=== PATIENT | male | born 1945 | race Caucasian/White ===

== ENCOUNTER → 2018-07-07 | Outpatient (CLI) | payer MEDICARE, OTHER | END | disposition home or self-care (01) | LOC: LAB 09:20 | PROVIDERS: ATTEND Internal Medicine | DX: R91.1 Solitary pulmonary nodule (principal); R07.89 Other chest pain | CPT/HCPCS: 36415; 82565; 84520 ==

== ENCOUNTER → 2019-02-28 | Outpatient (CLI) | payer MEDICARE, OTHER ==
[2019-02-28 09:17] LABS: Albumin 3.8 g/dL (3.4-5.0); Calcium 8.8 mg/dL (8.5-10.1); Potassium 4.7 mmol/L (3.5-5.1)
[2019-02-28 09:20] LABS: Bilirubin, Total 0.4 mg/dL (0.2-1.0); Total Protein 7.1 g/dL (6.4-8.2)
== END | disposition home or self-care (01) ==
LOC: LAB 08:15
PROVIDERS: ATTEND Internal Medicine
DX: E11.9 Type 2 diabetes mellitus without complications (principal); I10 Essential (primary) hypertension
CPT/HCPCS: 36415; 80053; 83036

== ENCOUNTER → 2019-08-16 | Outpatient (CLI) | payer MEDICARE, OTHER | END | disposition home or self-care (01) | LOC: LAB 10:26 | PROVIDERS: ATTEND Internal Medicine | DX: R07.81 Pleurodynia (principal) | CPT/HCPCS: 36415; 82565; 84520 ==

== ENCOUNTER → 2020-03-22 | Outpatient (CLI) | payer MEDICARE, OTHER | END | disposition home or self-care (01) | LOC: XYW 09:33 | PROVIDERS: ATTEND Internal Medicine | DX: I11.9 Hypertensive heart disease without heart failure (principal) | CPT/HCPCS: 93306 ==

== ENCOUNTER → 2020-06-13 | Outpatient (CLI) | payer MEDICARE, OTHER ==
[~2020-06-13] VITALS: Ht 182.9 cm; Wt 93.0 kg
[~2020-06-13] MED LIST: ADENOSINE 78 MG in GIVE UN-DILUTED 0 ML IV STA
== END | disposition home or self-care (01) ==
LOC: XY 08:25
PROVIDERS: ATTEND Internal Medicine
DX: R07.89 Other chest pain (principal)
CPT/HCPCS: 78452; 93017; A9500; J0153

== ENCOUNTER → 2022-06-03 | Outpatient (CLI) | payer MEDICARE, OTHER ==
[2022-06-03 17:05] LABS: Prostate Specific Antigen 2.75 ng/mL (0.0-4.0)
== END | disposition home or self-care (01) ==
LOC: LAB 15:21
PROVIDERS: ATTEND Internal Medicine
DX: E11.40 Type 2 diabetes mellitus with diabetic neuropathy, unspecified (principal); N40.0 Benign prostatic hyperplasia without lower urinary tract symptoms
CPT/HCPCS: 82607; 84153

== ENCOUNTER → 2023-02-16 | Outpatient (CLI) | payer MEDICARE, OTHER ==
[~2023-02-16] MED LIST changes: +ACE3T PO; -ADENOSINE 78 MG in GIVE UN-DILUTED 0 ML IV STA; +APIX5TAB PO; +CEPH250C PO; +GABA-1250 PO; +HYDR25TA5 PO; +LOSA50TA46 PO; +MECL1TAB42 PO; +MET50T PO; +METF-371 PO; +SIMV20TA20 PO
[2023-02-16 12:24] LABS: Basophils # (auto) 0 10 ^3/uL (0-0.2); Basophils % (auto) 0.3 % (0.0-2.0); Eosinophils # (auto) 0 10 ^3/uL (0-0.8); Eosinophils % (auto) 0.4 % (0.0-7.0); Hematocrit 42.7 % (41.0-53.0); Hemoglobin 14.7 g/dL (13.5-17.5); Lymphocytes # (auto) 2.9 10 ^3/uL (0.4-5.4); Lymphocytes % (auto) 39.4 % (10.0-50.0); Mean Corpuscular Hemoglobin 29.6 pg (28.0-32.0); Mean Corpuscular Hgb Conc. 34.5 g/dL (32.0-36.0); Mean Corpuscular Volume 85.7 fL (80.0-100.0); Monocytes # (auto) 0.5 10 ^3/uL (0-1.3); Monocytes % (auto) 6.8 % (0.0-12.0); Neutrophils # (auto) 3.9 10 ^3/uL (1.6-8.6); Neutrophils % (auto) 53.1 % (37.0-80.0); Nucleated Red Blood Cells % 0.1 %; Red Blood Cells 4.98 10^6/uL (4.5-5.90); Red Cell Distribution Width 13.6 % (11.8-14.3); White Blood Cell 7.4 10^3/uL (4.4-10.8)
[2023-02-16 12:42] LABS: INR 1.02 (0.9-1.15); Prothrombin Time 10.7 sec (9.3-11.8)
[2023-02-16 12:51] LABS: Alanine Aminotransferase 24 U/L (7-40); Albumin 4.9 g/dL (3.2-4.8); Alkaline Phosphatase 59 U/L (46-116); Anion Gap 6 (5-15); Aspartate Aminotransferase 23 U/L (13-40); BUN/Creatinine Ratio 12.6 (10.0-20.0); Bilirubin, Total 0.9 mg/dL (0.2-1.0); Blood Urea Nitrogen 14 mg/dL (9-23); Calcium 9.7 mg/dL (8.5-10.1); Carbon Dioxide 28 mmol/L (20-30); Chloride 102 mmol/L (98-107); Glucose 269 mg/dL (74-106); Potassium 4.2 mmol/L (3.5-5.1); Sodium 136 mmol/L (136-145); Total Protein 7.6 g/dL (5.7-8.2)
== END | disposition home or self-care (01) ==
LOC: LAB 11:42
PROVIDERS: ATTEND Internal Medicine
DX: E13.9 Other specified diabetes mellitus without complications (principal); R22.1 Localized swelling, mass and lump, neck
CPT/HCPCS: 36415; 80053; 83036; 83615; 85025; 85610

== ENCOUNTER 2023-03-13 06:02 | Day surgery (SDC) | payer MEDICARE, OTHER ==
[2023-03-12 11:55] LABS: Hemoglobin 15.2 g/dL (13.5-17.5); Mean Corpuscular Hemoglobin 29.4 pg (28.0-32.0); Mean Corpuscular Hgb Conc. 34.6 g/dL (32.0-36.0); Mean Corpuscular Volume 84.7 fL (80.0-100.0); Red Blood Cells 5.19 10^6/uL (4.5-5.90); Red Cell Distribution Width 13.1 % (11.8-14.3); White Blood Cell 12.9 10^3/uL (4.4-10.8)
[2023-03-12 11:59] LABS: Basophils % (manual) 0 (0.0-2.0); Blast Cells 0; Eosinophils % (manual) 0 (0-7); Promyelocytes % 0; Reactive Lymphocytes 0
[2023-03-12 12:02] LABS: INR 1.07 (0.9-1.15); Partial Thromboplastin Time 25.9 SEC (24.5-34.5); Prothrombin Time 11.2 sec (9.3-11.8)
[2023-03-12 12:10] LABS: Urine Bacteria NONE SEEN /hpf (None Seen); Urine Blood Negative /uL (Negative); Urine Clarity Clear (Clear); Urine Color Yellow (Yellow); Urine Hyaline Cast FEW /lpf (0 - 2); Urine Mucus FEW (None Seen); Urine Protein, UAD 1+ (Negative); Urine Specific Gravity 1.029 (1.001-1.035); Urine Urobilinogen Normal (Negative); Urine WBC <1 /hpf (0 - 3); Urine pH 5.5 (5.0-8.0)
[2023-03-12 13:01] LABS: Alanine Aminotransferase 19 U/L (7-40); Albumin 5.1 g/dL (3.2-4.8); Alkaline Phosphatase 135 U/L (46-116); Anion Gap 8 (5-15); Aspartate Aminotransferase 49 U/L (13-40); BUN/Creatinine Ratio 16.5 (10.0-20.0); Bilirubin, Total 0.7 mg/dL (0.2-1.0); Blood Urea Nitrogen 18 mg/dL (9-23); Calcium 10.2 mg/dL (8.7-10.4); Carbon Dioxide 28 mmol/L (20-30); Chloride 100 mmol/L (98-107); Glucose 241 mg/dL (74-106); Potassium 5.1 mmol/L (3.5-5.1); Sodium 136 mmol/L (136-145); Total Protein 8.1 g/dL (5.7-8.2)
[2023-03-12 13:19] LABS: Band Neutrophils % (manual) 1; Lymphocytes % (manual) 29 (10.0-50.0); Metamyelocytes % 1; Monocytes % (manual) 14 (0-12); Myelocytes % 3; Platelet Estimate Adequate
[~2023-03-13] VITALS: Ht 182.9 cm; Wt 88.9 kg
[~2023-03-13 06:02] MED LIST changes: -ACE3T PO; -CEPH250C PO; -MECL1TAB42 PO
[2023-03-13] MEDS ORDERED: SUCCINYLCHOLINE CHLORIDE 20 MG/ML 10ML VIAL IV ONE (06:59)
[2023-03-13] MEDS ORDERED: fentaNYL CITRATE 100 MCG/2 ML VL ONE (07:01)
[2023-03-13] MEDS ORDERED: ceFAZolin 2 GM/D5W100ml 100 ML IV ONE (07:01)
[2023-03-13] MEDS ORDERED: PROPOFOL 10 MG/ML 20 ML IV ONE (07:06)
[2023-03-13] MEDS ORDERED: LIDOCAINE W/ EPINEPHRINE 1% 20ML VIAL ONE (07:08)
[2023-03-13] MEDS ORDERED: BUPIVACAINE HCL 0.25% P/F 10 ML VIAL ONE (07:08)
[2023-03-13] MEDS ORDERED: MEPERIDINE HCL (50 MG/ML) 1 ML VIAL ONE (07:34)
[2023-03-13] MEDS ORDERED: ePHEDrine SULFATE 50 MG/ML AMP ONE (07:43)
[2023-03-13] MEDS ORDERED: DexAMETHasone SOD PHOS 10MG/1ML VIAL INJ ONE (07:52)
[2023-03-13] MEDS ORDERED: ONDANSETRON HCL 4 MG/2 ML VIAL ONE (07:52)
[2023-03-13] MEDS ORDERED: MEPERIDINE HCL (25 MG/ML) 1ML VIAL ONE (08:11)
[2023-03-13] MEDS ORDERED: ACE3T PO ×2 (08:34→08:39)
[2023-03-13 08:35] VITALS: PULSE 86; RESP 10; TEMP 97.6; O2SAT 96
[2023-03-13] MEDS ORDERED: CEPH250C PO (08:39)
[2023-03-13] MEDS ORDERED: HYDROmorphone HCL 2 MG/ML VL/or syr IV PRN (08:45)
[2023-03-13] MEDS ORDERED: MEPERIDINE HCL (25 MG/ML) 1ML VIAL IV PRN (08:45)
[2023-03-13] MEDS ORDERED: ONDANSETRON HCL 4 MG/2 ML VIAL IV PRN (08:45)
[2023-03-13] MEDS ORDERED: InsuLIN REG 1unit/0.01ml Soln (100units/ml) SC ONE (09:00)
[2023-03-13 10:00] VITALS: BP 120/57; PULSE 82; RESP 17; O2SAT 91
== END 2023-03-13 10:07 | disposition home or self-care (01) ==
LOC: SUR 06:02 → MERGE 07:00 → SUR 10:07
PROVIDERS: ATTEND Surgery
DX: C85.81 Other specified types of non-Hodgkin lymphoma, lymph nodes of head, face, and neck (principal); R22.1 Localized swelling, mass and lump, neck; I10 Essential (primary) hypertension; E11.9 Type 2 diabetes mellitus without complications; Z79.899 Other long term (current) drug therapy; Z79.4 Long term (current) use of insulin; Z98.890 Other specified postprocedural states
CPT/HCPCS: 36415; 42440; 80053; 81001; 82962; 85007; 85027; 85610; 85730; 86850; 86900; 86901; J0330; J1100; J1815; J2175; J2405; J2704; J3010; J3490

== ENCOUNTER 2023-03-24 13:01 | Inpatient (IN) | payer MEDICARE, OTHER ==
[~2023-03-24] VITALS: Ht 182.9 cm; Wt 83.5 kg
[~2023-03-24 13:01] MED LIST changes: +ACE3T PO; +CEPH250C PO
[2023-03-24] MEDS ORDERED: ACETAMINOPHEN 325 MG TAB PO PRN (16:15)
[2023-03-24] MEDS ORDERED: ALBUTEROL MEDNEB 2.5 mg/3ml NEB NEB PRN (16:30)
[2023-03-24] MEDS ORDERED: DEXTROSE (50%) 50ML SYRG IV PRN (16:30)
[2023-03-24] MEDS ORDERED: D5W/SOD CHL 0.45%/KCL 20MEQ 1,000 ML IV SCH (17:00)
[2023-03-24] MEDS ORDERED: HYDROmorphone HCL 2 MG/ML VL/or syr IV PRN (17:00)
[2023-03-24] MEDS: ACCU-CHEK COMFORT CURVE STRIP VI SCH ×2 (17:00→22:00)
[2023-03-24] MEDS: SODIUM CHLORIDE 0.9% 1,000 ML IV SCH (18:53)
[2023-03-24 18:58] LABS: Hematocrit 43.2 % (41.0-53.0); Hemoglobin 14.9 g/dL (13.5-17.5); Mean Corpuscular Hemoglobin 29.6 pg (28.0-32.0); Mean Corpuscular Hgb Conc. 34.4 g/dL (32.0-36.0); Red Blood Cells 5.02 10^6/uL (4.5-5.90); White Blood Cell 10.6 10^3/uL (4.4-10.8)
[2023-03-24 19:07] LABS: Basophils % (manual) 0 (0.0-2.0); Blast Cells 0; Eosinophils % (manual) 0 (0-7); Metamyelocytes % 0; Myelocytes % 0; Promyelocytes % 0; Reactive Lymphocytes 0
[2023-03-24] MEDS: InsuLIN REG 1unit/0.01ml Soln (100units/ml) SC SCH ×2 (19:09→23:37)
[2023-03-24 19:17] LABS: Urine Bacteria NONE SEEN /hpf (None Seen); Urine Blood Negative /uL (Negative); Urine Clarity Clear (Clear); Urine Color Colorless (Yellow); Urine Hyaline Cast FEW /lpf (0 - 2); Urine Mucus FEW (None Seen); Urine Protein, UAD Negative (Negative); Urine Specific Gravity 1.022 (1.001-1.035); Urine Urobilinogen Normal (Negative); Urine WBC <1 /hpf (0 - 3); Urine pH 5.5 (5.0-8.0)
[2023-03-24] MEDS ORDERED: TEMAZEPAM 15 MG CAP PO ONE (19:45)
[2023-03-24 20:00] VITALS: PULSE 86; RESP 18; O2SAT 96
[2023-03-24] MEDS ORDERED: INSU100I70 SC (20:06)
[2023-03-24 20:28] LABS: Band Neutrophils % (manual) 5; Lymphocytes % (manual) 39 (10.0-50.0); Monocytes % (manual) 11 (0-12); Platelet Estimate Adequate; RBC Morphology Normal
[2023-03-24 20:34] LABS: Alanine Aminotransferase 17 U/L (7-40); Albumin 4.2 g/dL (3.2-4.8); Alkaline Phosphatase 142 U/L (46-116); Anion Gap 13 (5-15); Aspartate Aminotransferase 64 U/L (13-40); BUN/Creatinine Ratio 24.5 (10.0-20.0); Blood Urea Nitrogen 27 mg/dL (9-23); Calcium 9.9 mg/dL (8.5-10.1); Carbon Dioxide 25 mmol/L (20-30); Chloride 96 mmol/L (98-107); Glucose 262 mg/dL (74-106); Sodium 134 mmol/L (136-145)
[2023-03-24 20:35] LABS: Bilirubin, Total 0.6 mg/dL (0.2-1.0); Total Protein 6.6 g/dL (5.7-8.2)
[2023-03-24 22:00] VITALS: BP 120/75; PULSE 86; RESP 18; TEMP 98.2; O2SAT 96
[2023-03-24] MEDS: GABAPENTIN 300 MG CAP PO SCH (23:34)
[2023-03-24] MEDS: ATORVASTATIN 20 MG TAB PO SCH (23:34)
[2023-03-24] MEDS: METOPROLOL TARTRATE 50 MG TAB PO SCH (23:36)
[2023-03-24] MEDS: ceFAZolin 2 GM/D5W100ml 100 ML IV SCH (23:55)
[2023-03-25] VITALS (7 sets, daily range): BP systolic 118–156; BP diastolic 50–70; PULSE 58–85; RESP 17–20; TEMP 97.6–98.5; O2SAT 95–98
[2023-03-25] MEDS: ceFAZolin 2 GM/D5W100ml 100 ML IV SCH ×3 (06:00→22:23)
[2023-03-25] MEDS: ACCU-CHEK COMFORT CURVE STRIP VI SCH ×4 (07:00→22:33)
[2023-03-25] MEDS: InsuLIN REG 1unit/0.01ml Soln (100units/ml) SC SCH ×4 (07:00→22:00)
[2023-03-25] MEDS: GABAPENTIN 300 MG CAP PO SCH ×3 (08:06→22:23)
[2023-03-25] MEDS ORDERED: OMNIPAQUE 12mg/ml 500ml ORAL SOLUTION PO ONE (08:28)
[2023-03-25] MEDS: SODIUM CHLORIDE 0.9% 1,000 ML IV SCH (08:55)
[2023-03-25] MEDS: METOPROLOL TARTRATE 50 MG TAB PO SCH ×2 (09:57→22:23)
[2023-03-25] MEDS: LOSARTAN POTASSIUM 50 MG TAB PO SCH (09:57)
[2023-03-25] MEDS ORDERED: hydroCHLOROthiazide 25 MG TAB PO SCH (10:00)
[2023-03-25] MEDS ORDERED: IOHEXOL 300 MG/ML 100ML BOTTLE IJ ONE (11:50)
[2023-03-25] MEDS: ATORVASTATIN 20 MG TAB PO SCH (22:24)
[2023-03-26] VITALS (9 sets, daily range): BP systolic 126–148; BP diastolic 68–91; PULSE 61–73; RESP 16–18; TEMP 97.4–98.5; O2SAT 93–98
[2023-03-26] MEDS: SODIUM CHLORIDE 0.9% 1,000 ML IV SCH (01:41)
[2023-03-26] MEDS: ceFAZolin 2 GM/D5W100ml 100 ML IV SCH ×3 (06:44→21:56)
[2023-03-26] MEDS: GABAPENTIN 300 MG CAP PO SCH ×3 (06:44→21:57)
[2023-03-26] MEDS: ACCU-CHEK COMFORT CURVE STRIP VI SCH ×4 (06:51→22:13)
[2023-03-26] MEDS: InsuLIN REG 1unit/0.01ml Soln (100units/ml) SC SCH ×4 (06:51→22:13)
[2023-03-26 06:52] LABS: INR 1.09 (0.9-1.15); Partial Thromboplastin Time 25.1 SEC (24.5-34.5); Prothrombin Time 11.4 sec (9.3-11.8)
[2023-03-26] MEDS ORDERED: LIDOCAINE 2%HCL (LOCAL ANESTH.) INJ 10ml MDV ONE (07:42)
[2023-03-26] MEDS ORDERED: NALOXONE HCL 1MG/ML 2ML SYRINGE ONE (07:49)
[2023-03-26] MEDS ORDERED: FLUMAZENIL 0.1 MG/ML INJ 10ML MDV IV ONE (07:49)
[2023-03-26] MEDS ORDERED: fentaNYL CITRATE 100 MCG/2 ML VL ONE (07:50)
[2023-03-26] MEDS ORDERED: MIDAZOLAM HCL 2MG/2ML 2ml VIAL (1mg/ml) ONE (07:50)
[2023-03-26] MEDS: LOSARTAN POTASSIUM 50 MG TAB PO SCH (10:29)
[2023-03-26] MEDS: METOPROLOL TARTRATE 50 MG TAB PO SCH ×2 (10:29→21:59)
[2023-03-26] MEDS ORDERED: GADOTERATE MEG 10 MMOL/20ml INJ (0.5MMOL/ml) IV ONE (10:53)
[2023-03-26] MEDS: TAMSULOSIN HYDROCHLORIDE 0.4 MG CAP PO SCH (18:40)
[2023-03-26] MEDS: ATORVASTATIN 20 MG TAB PO SCH (21:57)
[2023-03-27] VITALS (8 sets, daily range): BP systolic 109–138; BP diastolic 51–83; PULSE 54–78; RESP 16–18; TEMP 97.7–98.2; O2SAT 93–100
[2023-03-27] MEDS: GABAPENTIN 300 MG CAP PO SCH ×3 (05:37→21:12)
[2023-03-27] MEDS: ceFAZolin 2 GM/D5W100ml 100 ML IV SCH ×3 (05:37→21:22)
[2023-03-27] MEDS: ACCU-CHEK COMFORT CURVE STRIP VI SCH ×4 (06:45→21:22)
[2023-03-27] MEDS: InsuLIN REG 1unit/0.01ml Soln (100units/ml) SC SCH ×4 (06:45→21:39)
[2023-03-27] MEDS: METOPROLOL TARTRATE 50 MG TAB PO SCH ×2 (10:00→21:13)
[2023-03-27] MEDS: LOSARTAN POTASSIUM 50 MG TAB PO SCH (10:54)
[2023-03-27] MEDS: HYDROcodone-ACET 5/325MG TAB PO PRN (10:55)
[2023-03-27] MEDS ORDERED: IOHEXOL 300 MG/ML 100ML BOTTLE IJ ONE (14:00)
[2023-03-27] MEDS: TAMSULOSIN HYDROCHLORIDE 0.4 MG CAP PO SCH (18:01)
[2023-03-27] MEDS: ATORVASTATIN 20 MG TAB PO SCH (21:12)
[2023-03-28] VITALS (10 sets, daily range): BP systolic 111–150; BP diastolic 62–73; PULSE 67–76; RESP 16–18; TEMP 97.5–98.7; O2SAT 95–98
[2023-03-28] MEDS: ceFAZolin 2 GM/D5W100ml 100 ML IV SCH ×3 (06:10→21:24)
[2023-03-28] MEDS: GABAPENTIN 300 MG CAP PO SCH ×3 (06:10→21:23)
[2023-03-28] MEDS: HYDROcodone-ACET 5/325MG TAB PO PRN (06:20)
[2023-03-28] MEDS: ACCU-CHEK COMFORT CURVE STRIP VI SCH ×4 (06:27→21:29)
[2023-03-28] MEDS: InsuLIN REG 1unit/0.01ml Soln (100units/ml) SC SCH ×4 (06:31→21:36)
[2023-03-28 08:06] LABS: EBV Ab VCA IgM Antibody <36.0 U/mL (0.0-35.9); EBV Early Antigen IgG Antibody 87.3 U/mL (0.0-17.9)
[2023-03-28] MEDS: METOPROLOL TARTRATE 50 MG TAB PO SCH ×2 (09:47→21:23)
[2023-03-28] MEDS: LOSARTAN POTASSIUM 50 MG TAB PO SCH (09:48)
[2023-03-28] MEDS: TAMSULOSIN HYDROCHLORIDE 0.4 MG CAP PO SCH ×2 (18:00→18:16)
[2023-03-28] MEDS: ATORVASTATIN 20 MG TAB PO SCH (21:22)
[2023-03-29] VITALS (10 sets, daily range): BP systolic 135–149; BP diastolic 55–86; PULSE 66–77; RESP 16–18; TEMP 97.4–98.3; O2SAT 92–98
[2023-03-29] MEDS: ceFAZolin 2 GM/D5W100ml 100 ML IV SCH ×2 (05:29→14:55)
[2023-03-29] MEDS: GABAPENTIN 300 MG CAP PO SCH ×3 (05:29→21:47)
[2023-03-29] MEDS: InsuLIN REG 1unit/0.01ml Soln (100units/ml) SC SCH ×4 (06:04→21:52)
[2023-03-29] MEDS: ACCU-CHEK COMFORT CURVE STRIP VI SCH ×4 (06:05→21:51)
[2023-03-29] MEDS: LOSARTAN POTASSIUM 50 MG TAB PO SCH (09:41)
[2023-03-29] MEDS: METOPROLOL TARTRATE 50 MG TAB PO SCH ×2 (09:42→21:48)
[2023-03-29] MEDS ORDERED: AMOXICILLIN/CLAVUL 875 MG TAB PO ONE (17:15)
[2023-03-29] MEDS: TAMSULOSIN HYDROCHLORIDE 0.4 MG CAP PO SCH (18:00)
[2023-03-29] MEDS: ATORVASTATIN 20 MG TAB PO SCH (21:48)
[2023-03-30] VITALS (8 sets, daily range): BP systolic 131–147; BP diastolic 62–74; PULSE 62–72; RESP 18–19; TEMP 97.5–98; O2SAT 95–99
[2023-03-30] MEDS: ACCU-CHEK COMFORT CURVE STRIP VI SCH ×4 (06:22→21:46)
[2023-03-30] MEDS: GABAPENTIN 300 MG CAP PO SCH ×3 (06:22→21:45)
[2023-03-30] MEDS: InsuLIN REG 1unit/0.01ml Soln (100units/ml) SC SCH ×4 (06:25→21:51)
[2023-03-30 08:10] LABS: COVID19 ANTIGEN SOFIA FIA NEGATIVE (NEGATIVE)
[2023-03-30] MEDS: METOPROLOL TARTRATE 50 MG TAB PO SCH ×2 (09:36→21:46)
[2023-03-30] MEDS: LOSARTAN POTASSIUM 50 MG TAB PO SCH (09:36)
[2023-03-30] MEDS: AMOXICILLIN/CLAVUL 875 MG TAB PO SCH ×2 (09:37→21:45)
[2023-03-30] MEDS ORDERED: DEXTROSE (50%) 50ML SYRG IV PRN (10:15)
[2023-03-30] MEDS: TAMSULOSIN HYDROCHLORIDE 0.4 MG CAP PO SCH (17:14)
[2023-03-30] MEDS: HYDROcodone-ACET 5/325MG TAB PO PRN (17:14)
[2023-03-30] MEDS: ATORVASTATIN 20 MG TAB PO SCH (21:46)
[2023-03-31] VITALS (11 sets, daily range): BP systolic 113–134; BP diastolic 54–84; PULSE 63–87; RESP 16–20; TEMP 97.4–98.1; O2SAT 92–98
[2023-03-31] MEDS: GABAPENTIN 300 MG CAP PO SCH ×3 (06:29→21:21)
[2023-03-31] MEDS: ACCU-CHEK COMFORT CURVE STRIP VI SCH ×4 (06:29→21:21)
[2023-03-31] MEDS: InsuLIN REG 1unit/0.01ml Soln (100units/ml) SC SCH ×4 (06:32→21:25)
[2023-03-31] MEDS: AMOXICILLIN/CLAVUL 875 MG TAB PO SCH ×2 (09:32→21:20)
[2023-03-31] MEDS: LOSARTAN POTASSIUM 50 MG TAB PO SCH (09:33)
[2023-03-31] MEDS: METOPROLOL TARTRATE 50 MG TAB PO SCH ×2 (09:33→21:21)
[2023-03-31] MEDS: HYDROcodone-ACET 5/325MG TAB PO PRN ×2 (13:48→19:58)
[2023-03-31] MEDS: TAMSULOSIN HYDROCHLORIDE 0.4 MG CAP PO SCH (17:18)
[2023-03-31] MEDS: ATORVASTATIN 20 MG TAB PO SCH (21:20)
[2023-03-31] MEDS: INSULIN LANTUS (GLARGINE) 1 /0.01ml (100units/ml) SC SCH (21:31)
[2023-04-01] VITALS (8 sets, daily range): BP systolic 117–137; BP diastolic 66–74; PULSE 68–75; RESP 14–20; TEMP 97–98.5; O2SAT 93–96
[2023-04-01] MEDS: GABAPENTIN 300 MG CAP PO SCH ×3 (06:05→21:50)
[2023-04-01] MEDS: HYDROcodone-ACET 5/325MG TAB PO PRN ×3 (06:05→21:49)
[2023-04-01] MEDS: ACCU-CHEK COMFORT CURVE STRIP VI SCH ×4 (06:05→21:49)
[2023-04-01] MEDS: InsuLIN REG 1unit/0.01ml Soln (100units/ml) SC SCH ×4 (06:20→21:55)
[2023-04-01] MEDS: METOPROLOL TARTRATE 50 MG TAB PO SCH ×2 (10:59→21:51)
[2023-04-01] MEDS: LOSARTAN POTASSIUM 50 MG TAB PO SCH (11:00)
[2023-04-01] MEDS: TAMSULOSIN HYDROCHLORIDE 0.4 MG CAP PO SCH (17:46)
[2023-04-01] MEDS: ATORVASTATIN 20 MG TAB PO SCH (21:50)
[2023-04-01] MEDS: INSULIN LANTUS (GLARGINE) 1 /0.01ml (100units/ml) SC SCH (21:56)
[2023-04-02 05:00] VITALS: BP 136/68; PULSE 71; RESP 16; TEMP 97.8; O2SAT 94
[2023-04-02] MEDS: GABAPENTIN 300 MG CAP PO SCH (06:24)
[2023-04-02] MEDS: InsuLIN REG 1unit/0.01ml Soln (100units/ml) SC SCH (06:24)
[2023-04-02] MEDS: ACCU-CHEK COMFORT CURVE STRIP VI SCH (06:24)
[2023-04-02 08:00] VITALS: BP 114/51; PULSE 103; RESP 18; TEMP 97.6; O2SAT 95
[2023-04-02 09:22] VITALS: BP 114/51; PULSE 103; RESP 18; TEMP 97.6; O2SAT 95
[2023-04-02 10:00] VITALS: O2SAT 95
[2023-04-02] MEDS: METOPROLOL TARTRATE 50 MG TAB PO SCH (10:49)
[2023-04-02] MEDS: LOSARTAN POTASSIUM 50 MG TAB PO SCH (10:49)
== END 2023-04-02 11:15 | disposition short-term general hospital (02) | DRG 842 ==
LOC: CENTRAL 13:37
PROVIDERS: ADMIT Nurse Practitioner Family; ATTEND Internal Medicine
PROC: 07DR3ZX Extraction of Iliac Bone Marrow, Percutaneous Approach, Diagnostic (ICD-10-PCS; principal; 2023-03-26)
DX: C83.70 Burkitt lymphoma, unspecified site (principal); E11.40 Type 2 diabetes mellitus with diabetic neuropathy, unspecified; I10 Essential (primary) hypertension; J44.9 Chronic obstructive pulmonary disease, unspecified; Z20.822 Contact with and (suspected) exposure to COVID-19; N40.0 Benign prostatic hyperplasia without lower urinary tract symptoms; E78.5 Hyperlipidemia, unspecified; R63.4 Abnormal weight loss; Z98.890 Other specified postprocedural states; Z68.25 Body mass index [BMI] 25.0-25.9, adult
CPT/HCPCS: 10005; 36415; 70491; 70553; 71260; 72192; 74177; 77012; 80053; 81001; 82962; 83615; 84550; 85007; 85027; 85610; 85730; 86664; 86703; 86850; 86900; 86901; 87426; G0378; J1815; J2001; J2250

== ENCOUNTER → 2023-10-27 | Outpatient (CLI) | payer MEDICARE, OTHER ==
[~2023-10-27] MED LIST changes: +INSU100I70 SC; +LOSA-534 PO; -LOSA50TA46 PO
== END | disposition home or self-care (01) ==
LOC: XYW 10:37
DX: I51.89 Other ill-defined heart diseases (principal); R60.0 Localized edema
CPT/HCPCS: 93306

== ENCOUNTER 2025-02-13 08:48 | Outpatient (CLI) | payer MEDICARE, OTHER | END 2025-02-13 17:00 | disposition home or self-care (01) | LOC: LAB 08:48 | PROVIDERS: ATTEND Internal Medicine | DX: E11.42 Type 2 diabetes mellitus with diabetic polyneuropathy (principal) | CPT/HCPCS: 36415; 84132 ==